=== PATIENT | male | born 1980 | race Caucasian/White ===

== ENCOUNTER 2020-08-24 11:04 | Emergency (ER) | payer BC, SELFPAY ==
[2020-08-24 11:06] VITALS: BP 128/72; PULSE 79; RESP 18; TEMP 36.4; O2SAT 100
[2020-08-24 11:31] LABS: Add Urine Microscopic? YES; Appearance Urine Clear (Clear); Bacteria Urine Trace /hpf; Bilirubin Urine Negative (Negative); Blood Urine Negative (Negative); Color Urine Yellow (Yellow); Glucose Urine UA Negative (Negative); Ketones Urine Negative (Negative); Leukocyte Esterase Ur Negative LEU/UL (Negative); Mucus Urine Rare /lpf; Nitrate Urine Negative (Negative); Protein Urine 1+ mg/dL (Negative); RBC Urine 0-2 /hpf (0-2); Squamous Epithelial Cell Urine Moderate /hpf (Few); Urobilinogen Urine Negative mg/dL (<2.0)
[2020-08-24 11:38] LABS: Specific Grav Ur 1.031 (1.001-1.035)
[2020-08-24 12:13] LABS: Basophils Absolute Auto 0.1 K/mm3 (0.0-0.1); Basophils Percent Auto 1.1 % (0.2-1.2); Eosinophils Absolute Auto 0.6 K/mm3 (0-0.3); Eosinophils Percent Auto 6.1 % (0-4.4); Hematocrit 40.3 % (42.0-52.0); Hemoglobin 13.8 g/dL (14.0-18.0); Immature Granulocyte Absolute 0.05 K/mm3 (0.00-0.031); Immature Granulocyte Percent A 0.5 % (0-0.5); Lymphocytes Absolute Auto 2.58 K/mm3 (0.9-3.2); Lymphocytes Percent Auto 24.7 % (18.3-44.2); Mean Corpuscular HGB Conc 34.2 g/dl (32-36); Mean Corpuscular Hemoglobin 29.1 pg (26-34); Mean Platelet Volume 9.5 fl (7.4-10.4); Monocytes Absolute Auto 0.9 K/mm3 (0.1-0.6); Monocytes Percent Auto 8.1 % (2.6-8.5); Neutrophils Absolute Auto 6.2 K/mm3 (1.3-6.7); Neutrophils Percent Auto 59.5 % (45.5-73.1); Platelet Count Result 261 k/mm3 (150-375); Red Blood Count 4.74 M/mm3 (4.6-6.20); Red Cell Distribution Width 12.5 % (11.5-14.5); White Blood Count 10.5 K/mm3 (4.5-10.0)
[2020-08-24] MEDS: HYDROcodone/acetaminophen (*CRX) 5-325 MG TABLET 1 TAB PO (12:13)
[2020-08-24] MEDS: SODIUM CHLORIDE 0.9% IV 1,000 ML 999 ML IV CONT ×2 (12:13→13:16)
[2020-08-24] MEDS: KETOROLAC 30 MG/ML VIAL (*BKC) IV PUSH (12:13)
[2020-08-24] MEDS: diazePAM (*CRX) 5 MG TABLET PO (12:16)
[2020-08-24 12:25] LABS: Anion Gap 7 mmol/L (8-16); Blood Urea Nitrogen 27 mg/dL (9-20); Carbon Dioxide 27 mmol/L (22-30); Chloride 105 mmol/L (98-107); Estimated CRCL calculation 115 ml/min; Estimated Glomerular Filt Rate > 60; Glucose 109 mg/dL (75-110); Potassium 3.8 mmol/L (3.4-5.0); Sodium 139 mmol/L (137-145)
[2020-08-24 13:38] VITALS: BP 130/62; PULSE 80; RESP 16; O2SAT 99
--- NOTE | 2020-08-24 13:46 | ED.GENADULT ---
HPI - General Adult General Chief complaint: Back Pain/Injury Stated complaint: Low Back Pain/unable to take a deep breath Time Seen by Provider: 08/24/20 11:12 Source: patient, family and RN notes reviewed Mode of arrival: ambulatory Limitations: no limitations History of Present Illness HPI narrative: Patient a 40-year-old male who presents to emergency department for evaluation of left lower lumbar paraspinal back pain that began after working outdoors yesterday patient works in construction for himself patient notes after working he had sat down and noticed that his back began to have spasm and pain noting aching pain worse with activity or movement that does not radiate denies any fever chills nausea vomiting on arrival appears uncomfortable pain has been present for roughly 2 to 3 days patient denies other injury or trauma patient has been taking ibuprofen with minimal improvement Related Data Allergies Allergy/AdvReac Type Severity Reaction Status Date / Time No Known Allergies Allergy Unverified 08/24/20 12:26 Review of Systems Review of Systems: All systems reviewed & are unremarkable except as noted in HPI and below PMFSH Past Medical History Medical History (Updated 08/24/20 @ 13:51 by Dylon Parham PA-C) Diabetes mellitus Family History Family History (Updated 04/16/14 @ 09:46 by DOCTOR UNKNOWN) Grandparent Cerebrovascular accident Diabetes mellitus Father Family history of heart disease in male family member before age 55 Social History Social History Smoking status: Never smoker Second hand tobacco smoke exposure: No Alcohol intake: current Exam Narrative: Exam Narrative: GENERAL: Well-appearing, well-nourished, uncomfortable and in no acute distress. HEAD: Normocephalic, atraumatic. EYES: PERRLA and EOMI. ENT: Nares clear, no rhinorrhea or epistaxis. Mucous membranes moist. CHEST: Clear to auscultation. No respiratory distress. No wheezes rales or rhonchi HEART: Regular rate and rhythm. No murmur heard. Normal peripheral pulses. ABDOMEN: Soft, nontender, nondistended EXTREMITIES: Normal range of motion. No edema. Tenderness of the left lower lumbar paraspinal musculature with spasming no midline or right-sided tenderness SKIN: Warm, dry, no rash. NEURO: No focal deficits. Alert and oriented x3. Cranial nerves II through XII grossly intact PSYCH: Normal mood and affect. Course Course Emergency Course: Patient in the room no distress aware of case findings treatment plan and diagnosis agreeing to follow-up as instructed was hydrated had improvement with medications advised to follow with primary care and agrees to and will return if symptoms worsen or concerns ABCs and vital signs intact and stable Vital Signs Vital signs: Vital Signs Temperature 97.5 F L 08/24/20 11:06 Pulse Rate 79 08/24/20 11:06 Respiratory Rate 18 08/24/20 11:06 Blood Pressure 128/72 08/24/20 11:06 Pulse Oximetry 100 08/24/20 11:06 Temperature 97.5 F L 08/24/20 11:06 Pulse Rate 80 08/24/20 13:38 Respiratory Rate 16 08/24/20 13:38 Blood Pressure 130/62 08/24/20 13:38 Pulse Oximetry 99 08/24/20 13:38 Medical Decision Making MDM Narrative Medical decision making narrative: Patients pain is positional in nature and localized to back without signs of cord compression or cauda equina based on neurological exam, skeletal exam and history. No fever or other significant factors to suggest osteomyelitis or spinal epidural abscess. No symptoms or signs to suggest pain is referred from abdominal or / cardiopulmonary sources. No pulsatile masses noted on exam. Patient ambulates with steady gait and is stable for outpatient management given case findings. Vital Signs Vital Signs: Vital Signs Temperature 97.5 F L 08/24/20 11:06 Pulse Rate 79 08/24/20 11:06 Respiratory Rate 18 08/24/20 11:06 Blood Pressure 1
[2020-08-24 14:29] VITALS: BP 128/72; PULSE 80; RESP 18; O2SAT 99
== END 2020-08-24 14:31 | disposition home or self-care (01) ==
PROVIDERS: Emergency Medicine Emergency Medical Services; Emergency Provider Emergency Medicine; PCP Family Medicine
DX: M54.5 Low back pain (principal); E11.9 Type 2 diabetes mellitus without complications
CPT/HCPCS: 36415; 80048; 81001; 85025; 96361; 96374; 99284; A9270; J1885; J7030

== ENCOUNTER 2021-01-01 15:24 | Emergency (ER) | payer BC, SELFPAY ==
--- NOTE | ~2021-01-01 | CT_ITS ---
EXAMINATION: CT abdomen pelvis w con DATE: 01/01/2021 16:48 INDICATION: Abdominal pain. Blood in stool. TECHNIQUE: Computed tomography (CT) of the abdomen and pelvis was performed with 100 mL Omnipaque 350 intravenous contrast. Automated exposure control and iterative reconstruction technique were employe d. The dose-length product was 1146.52 mGy-cm. COMPARISON: None. FINDINGS: The visualized portions of the lung bases and posterior mild atelectasis. No pleural effusi on. The heart size is normal. No pericardial effusion. The liver, gallbladder, spleen, pancreas, adre nal glands, and kidneys are normal. There are no dilated loops of bowel. The appendix is normal. Ther e are no pathologically enlarged lymph nodes. There is no free intraperitoneal fluid. There is promin ent fat in the inguinal canals that may be hernias. There is mild lumbar spondylosis. IMPRESSION: 1. Prominent fat in the inguinal canals that may be hernias. Reviewed, dictated and finalized at location A.
[2021-01-01 15:36] VITALS: BP 133/79; PULSE 89; RESP 20; TEMP 36.5; O2SAT 98
--- NOTE | 2021-01-01 15:38 | ED.ABDPAIN ---
HPI - Abdominal Pain General Chief Complaint: Abdominal Pain Stated Complaint: stomach pain, blood in stool Time Seen by Provider: 01/01/21 15:38 Source: patient Mode of arrival: ambulatory Limitations: no limitations History of Present Illness HPI narrative: Patient is 40 years old white male presents to the ED with diffuse upper abdominal pain started 4 days ago, got better after 2 days. Associated with nausea and diarrhea for the same 2 days. Currently patient is asymptomatic. Patient came today because he have some blood in the stool 2 days ago, history of hemorrhoids. Patient denies any anal discomfort or pain patient also denies any fever or chills Related Data Home Medications Medication Instructions Recorded Confirmed No Home Medications 01/01/21 01/01/21 Allergies Allergy/AdvReac Type Severity Reaction Status Date / Time No Known Allergies Allergy Unverified 01/01/21 15:35 Review of Systems Review of Systems: CONSTITUTIONAL: Denies fever, chills, or sweats. EYES: Denies visual changes, redness, or discharge. ENT: Denies rhinorrhea, congestion, sore throat, or otalgia. CARDIOVASCULAR: Denies chest pain, palpitations, or edema. RESPIRATORY: Denies cough or dyspnea. GASTROINTESTINAL: Denies abdominal pain, nausea, vomiting, or diarrhea. GENITOURINARY: Denies dysuria or hematuria. SKIN: Denies rash or itching. MUSCULOSKELETAL: Denies back pain, joint pain, or myalgia. NEUROLOGIC: Denies headache, numbness, or weakness. PSYCHIATRIC: Denies anxiety or depression. PMFSH Past Medical History Medical History Diabetes mellitus Family History Family History Grandparent Cerebrovascular accident Diabetes mellitus Father Family history of heart disease in male family member before age 55 Social History Social History Smoking status: Never smoker Second hand tobacco smoke exposure: No Alcohol intake: current Exam Narrative: General appearance: Well-developed, well-nourished Skin: Normal color Head: Normocephalic, nontraumatic Eyes: Clear conjunctiva ENT: Oropharynx normal, ears normal, nose normal Neck: Supple, nontender Chest and respiratory: Airway patent, no respiratory distress, no accessory muscle use Heart: Regular rate/rhythm Abdomen: Soft, nontender, no organomegaly, quiet bowel sounds, rectal exam showed no blood, guaiac negative, no hemorrhoids, no pain or tenderness Vascular: Normal peripheral pulses, normal capillary refill. 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 Labs, IV fluid ordered. Rectal exam showed no blood, guaiac negative, patient was advised to follow-up with snow groomer if there is any blood in the stool again. Differential Diagnosis Differential diagnosis: Likely abdominal pain Imaging Data Radiologist's impression: Impressions Abdomen/Pelvis CT 01/01/21 16:49 IMPRESSION: 1. Prominent fat in the inguinal canals that may be hernias. Critical Care Time Critical Care Time Critical Care Time: Yes Total Critical Care Time: 30 Discharge Plan Discharge Clinical Impression: Abdominal pain Qualifiers: Abdominal location: upper abdomen, unspecified Qualified Code(s): R10.10 - Upper abdominal pain, unspecified Diarrhea Qualifiers: Diarrhea type: presumed in
[2021-01-01] MEDS: SODIUM CHLORIDE 0.9% IV 1,000 ML 999 ML IV CONT (15:55)
[2021-01-01 16:02] LABS: Basophils Absolute Auto 0.1 K/mm3 (0.0-0.1); Eosinophils Absolute Auto 0.4 K/mm3 (0-0.3); Eosinophils Percent Auto 3.3 % (0-4.4); Hemoglobin 15.9 g/dL (14.0-18.0); Immature Granulocyte Absolute 0.04 K/mm3 (0.00-0.031); Immature Granulocyte Percent A 0.4 % (0-0.5); Lymphocytes Absolute Auto 2.84 K/mm3 (0.9-3.2); Lymphocytes Percent Auto 25.7 % (18.3-44.2); Mean Corpuscular HGB Conc 33.8 g/dl (32-36); Mean Corpuscular Hemoglobin 29.7 pg (26-34); Mean Corpuscular Volume 87.7 fl (80-100); Mean Platelet Volume 9.4 fl (7.4-10.4); Monocytes Absolute Auto 0.9 K/mm3 (0.1-0.6); Monocytes Percent Auto 7.7 % (2.6-8.5); Neutrophils Absolute Auto 6.8 K/mm3 (1.3-6.7); Neutrophils Percent Auto 61.9 % (45.5-73.1); Platelet Count Result 276 k/mm3 (150-375); Red Blood Count 5.36 M/mm3 (4.6-6.20); Red Cell Distribution Width 12.1 % (11.5-14.5); White Blood Count 11.1 K/mm3 (4.5-10.0)
[2021-01-01 16:17] LABS: Add Urine Microscopic? NO; Appearance Urine Clear (Clear); Bilirubin Urine Negative (Negative); Blood Urine Negative (Negative); Color Urine Yellow (Yellow); Glucose Urine UA Negative (Negative); Ketones Urine Negative (Negative); Leukocyte Esterase Ur Negative LEU/UL (Negative); Nitrate Urine Negative (Negative); Protein Urine Negative (Negative); Specific Grav Ur 1.026 (1.001-1.035); Urobilinogen Urine Negative mg/dL (<2.0)
[2021-01-01 16:37] LABS: Alanine Aminotransferase 80 U/L (4-50); Albumin Level 4.6 g/dL (3.5-5.1); Alkaline Phosphatase 83 U/L (38-126); Anion Gap 8 mmol/L (8-16); Aspartate Amino Transferase 47 U/L (17-59); Bilirubin,Total 0.5 mg/dL (0.2-1.3); Blood Urea Nitrogen 20 mg/dL (9-20); Calcium 9.1 mg/dL (8.4-10.2); Carbon Dioxide 26 mmol/L (22-30); Chloride 106 mmol/L (98-107); Estimated CRCL calculation 118 ml/min; Estimated Glomerular Filt Rate > 60; Glucose 103 mg/dL (65-110); Lipase 138 U/L (23-300); Sodium 140 mmol/L (137-145)
== END 2021-01-01 17:52 | disposition home or self-care (01) ==
PROVIDERS: Emergency Provider Emergency Medicine; PCP Family Medicine
DX: R10.10 Upper abdominal pain, unspecified (principal); R19.7 Diarrhea, unspecified; R93.5 Abnormal findings on diagnostic imaging of other abdominal regions, including retroperitoneum
CPT/HCPCS: 36415; 74177; 80053; 81003; 83690; 85025; 96360; 96361; 99284; J7030; Q9967

== ENCOUNTER 2022-06-20 12:48 | Emergency (ER) | payer SELFPAY ==
--- NOTE | ~2022-06-20 | XR_ITS ---
EXAMINATION: XR ankle RT min 3V DATE: 06/20/2022 13:07 INDICATION: Right ankle pain and swelling. TECHNIQUE: 4 views of right ankle were obtained. COMPARISON: None. FINDINGS: Bone alignment is normal. No fracture. There is mild osteoarthritis of talonavicular joint. There are enthesophytes at the posterior and plantar aspects of calcaneal tuberosity. IMPRESSION: 1. Mild osteoarthritis of talonavicular joint. Reviewed, dictated and finalized at location A.
--- NOTE | ~2022-06-20 | US_ITS ---
EXAMINATION: US venous doppler LE RT DATE: 06/20/2022 14:58 INDICATION: R ankle,calf pain, swelling, no injury . TECHNIQUE: Grayscale images without and with compression and Doppler images of the right lower extrem ity veins were obtained. COMPARISON: None FINDINGS: The right common femoral vein, profunda (deep) femoral vein, femoral vein, popliteal vein, peroneal v ein, posterior tibial veins, gastrocnemius vein, and greater saphenous vein are patent. IMPRESSION: 1. Patent right lower extremity veins. No evidence of deep venous thrombosis. Reviewed, dictated and finalized at location K.
[2022-06-20 12:51] VITALS: BP 122/88; PULSE 82; RESP 18; TEMP 36.8; O2SAT 100
[2022-06-20] MEDS: NAPROXEN 250 MG TABLET 500 MG PO (14:35)
--- NOTE | 2022-06-20 15:07 | ED.LOWEXIN ---
HPI - Extremity Injury (Lower) General Chief Complaint: Extremity Injury, Lower Stated Complaint: R Ankle pain Time Seen by Provider: 06/20/22 13:46 Source: patient Mode of arrival: ambulatory Limitations: no limitations History of Present Illness HPI Narrative: Patient is a 41 y/o male who presents to the ED with c/o R ankle pain. Patient reports having pain in his R ankle since yesterday afternoon. Began while at work. He denied any known injury, fall, twisting. He states the pain has progressively worsened since then to the point he is hardly able to bear weight on his R foot now. He has noticed slight swelling to his R ankle and lower calf, but denies redness or warmth, tingling, numbness. Denies fever, chills. Denies wounds. Denies Hx gout. Patient takes lisinopril/HCTZ for hypertension. Denies history of diabetes. Denies EtOH use, diet high in red meat. Related Data Allergies Allergy/AdvReac Type Severity Reaction Status Date / Time No Known Allergies Allergy Verified 06/20/22 12:49 Review of Systems Review of Systems: CONSTITUTIONAL: Denies fever, chills, or sweats. SKIN: See HPI. MUSCULOSKELETAL: See HPI. NEUROLOGIC: Denies tingling, numbness, or weakness. All systems reviewed & are unremarkable except as noted in HPI and below PMFSH Past Medical History Medical History HTN (hypertension) Surgical History Surgical History No pertinent past surgical history Family History Family History Grandparent Cerebrovascular accident Diabetes mellitus Father Family history of heart disease in male family member before age 55 Social History Social History (Updated 06/20/22 @ 15:44 by Monica Chandler PA-C) Smoking status: Never smoker Second hand tobacco smoke exposure: No Alcohol intake: former Exam Narrative: GENERAL: Well appearing, obese, non-toxic, in no acute distress. HEAD: Normocephalic, atraumatic. NECK: Supple. No adenopathy, no masses. RESPIRATORY: Airway patent, respirations nonlabored. Clear to auscultation bilaterally, no rales, rhonchi, wheezing. CARDIOVASCULAR: Regular rate and rhythm without murmurs, rubs, or gallops. Pedal pulses 2+ and equal bilaterally. MUSCULOSKELETAL: Moves all extremities. Strength/ROM intact without gross deformities. Mild limited range of motion of right ankle due to pain. Moderate tenderness to palpation over anterior and medial left ankle with even very light touch. SKIN: Warm, dry, normal color. No rashes. Mild swelling right ankle diffusely throughout joint. NEURO: A&O X3. Speech clear. Cranial nerves II-XII grossly intact. No ataxic movements. PSYCHIATRIC: Appropriate mood and affect. Normal interaction. Course Vital Signs Vital signs: Vital Signs Temperature 98.2 F 06/20/22 12:51 Pulse Rate 82 06/20/22 12:51 Respiratory Rate 18 06/20/22 12:51 Blood Pressure 122/88 06/20/22 12:51 Pulse Oximetry 100 06/20/22 12:51 Oxygen Delivery Room Air 06/20/22 12:51 Temperature 98.2 F 06/20/22 12:51 Pulse Rate 82 06/20/22 12:51 Respiratory Rate 18 06/20/22 12:51 Blood Pressure 122/88 06/20/22 12:51 Pulse Oximetry 100 06/20/22 12:51 Oxygen Delivery Room Air 06/20/22 12:51 MDM - Extremity Injury (Lower) MDM Narrative Medical decision making narrative: Patient presented to ED with 2-day history of right ankle pain pain, mild swelling. No known injury. Exam with significant tenderness to palpation with even very light touch to right ankle. No significant redness or warmth, no wounds, low suspicion for septic joint or cellulitis. Vitals have been stable, afebrile. X-ray right ankle negative, showing mild OA. Venous Doppler ultrasound obtained and negative for DVT. Discussed that symptoms may be related to gout versus ankle sprain.
[2022-06-20 15:35] VITALS: BP 140/86; PULSE 85; RESP 16; O2SAT 99
== END 2022-06-20 15:48 | disposition home or self-care (01) ==
PROVIDERS: Emergency Provider Physician Assistant; PCP Family Medicine
DX: M25.571 Pain in right ankle and joints of right foot (principal); I10 Essential (primary) hypertension; M19.071 Primary osteoarthritis, right ankle and foot
CPT/HCPCS: 73610; 93971; 99284; A9270

== ENCOUNTER 2022-07-04 15:07 | Emergency (ER) | payer SELFPAY ==
--- NOTE | ~2022-07-04 | XR_ITS ---
EXAMINATION: XR chest 2V 07/04/2022 17:39 INDICATION: Upper back and chest pain PROCEDURE: 2 view chest COMPARISON: 02/18/2014 FINDINGS: The lungs are clear. The cardiomediastinal silhouette is within normal limits. There are no pleural effusions. There is no pneumothorax suspected. IMPRESSION: 1: NO ACUTE CARDIOPULMONARY DISEASE. Reviewed, dictated and finalized at location A.
--- NOTE | ~2022-07-04 | CT_ITS ---
EXAMINATION: CT cervical spine wo con DATE: 07/04/2022 17:34 INDICATION: Neck injury TECHNIQUE: Computed tomography (CT) of the cervical spine was performed without intravenous contrast. The dose-length product was 517 mGy-cm. Automated exposure control and iterative reconstruction tech nique were employed. COMPARISON: None FINDINGS: Craniovertebral junction is normal. Odontoid process within normal limits. No evidence for perched facet. Spinous processes are intact. There is straightening of cervical lordosis which may be due to muscle spasm or patient positioning. Vertebral body heights are maintained. No significant di sc narrowing. No acute fracture or traumatic malalignment. Lung apices are normal. Uncinate joints ar e intact. Lateral masses normally aligned. No significant paraspinal soft tissue abnormality. IMPRESSION: 1. No acute abnormality of the cervical spine. Reviewed, dictated and finalized at location A.
[2022-07-04 15:25] VITALS: BP 121/62; PULSE 107; RESP 18; TEMP 36.9; O2SAT 98
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
[2022-07-04] MEDS: IBUPROFEN 600 MG TABLET PO (17:39)
[2022-07-04] MEDS: ACETAMINOPHEN 325 MG TABLET 650 MG PO (17:39)
== END 2022-07-04 18:20 | disposition home or self-care (01) ==
LOC: ANHED 18:18
PROVIDERS: Emergency Provider Physician Assistant; PCP Family Medicine
DX: S29.9XXA Unspecified injury of thorax, initial encounter (principal); I10 Essential (primary) hypertension; V49.40XA Driver injured in collision with unspecified motor vehicles in traffic accident, initial encounter
CPT/HCPCS: 71046; 72125; 99284; A9270

== ENCOUNTER 2022-07-19 11:48 | Emergency (ER) | payer SELFPAY ==
[2022-07-19] VITALS (19 sets, daily range): BP systolic 114–132; BP diastolic 65–80; PULSE 85–113; RESP 17–32; TEMP 37.3; O2SAT 92–97
--- NOTE | ~2022-07-19 | XR_ITS ---
EXAMINATION: XR chest 1V portable DATE: 07/19/2022 12:35 INDICATION: Cough and shortness of breath. TECHNIQUE: A single frontal view of the chest was obtained. COMPARISON: Chest 2 views 07/04/2022, CT abdomen and pelvis 01/01/2021 FINDINGS: The chest demonstrates clear lungs without pneumonia, pleural effusion, or pneumothorax. Th e heart size is normal. IMPRESSION: 1. No acute cardiopulmonary disease. Reviewed, dictated and finalized at location A.
--- NOTE | 2022-07-19 12:21 | ED.FEVER ---
HPI - Fever General Chief Complaint: Fever Stated Complaint: fever Time Seen by Provider: 07/19/22 11:59 History of Present Illness HPI Narrative: Patient is a 41-year-old male with a history of hypertension presenting with fevers. Patient states that for the last 5 days he has been experiencing diffuse body aches, cough, shortness of breath, vomiting, diarrhea. States that he has been running an intermittent fever. States that it was up to 102 last night. States that he took some ibuprofen this morning. States that he has some chest pain only when he coughs. Reports mild dysuria. No headaches, numbness or weakness, sore throat, abdominal pain, flank pain, rashes, leg swelling. Related Data Allergies Allergy/AdvReac Type Severity Reaction Status Date / Time No Known Allergies Allergy Verified 07/19/22 11:58 Review of Systems Review of Systems: All systems reviewed & are unremarkable except as noted in HPI and below PMFSH Past Medical History Medical History HTN (hypertension) Surgical History Surgical History No pertinent past surgical history Family History Family History Grandparent Cerebrovascular accident Diabetes mellitus Father Family history of heart disease in male family member before age 55 Social History Social History Smoking status: Never smoker Second hand tobacco smoke exposure: No Alcohol intake: former Exam Narrative: GENERAL: Nontoxic, in no acute distress, does appear fatigued HEAD: Normocephalic, atraumatic. EYES: PERRLA and EOMI. ENT: Nares clear, no rhinorrhea or epistaxis. Mucous membranes moist. NECK: Supple. CHEST: Clear to auscultation. No respiratory distress. HEART: Regular rate and rhythm. No murmur heard. Normal peripheral pulses. ABDOMEN: Soft, nontender, nondistended EXTREMITIES: Normal range of motion. No edema. SKIN: Warm, dry, no rash. Several cat scratches left lower extremity without surrounding erythema or warmth, not suspicious for infected wounds NEURO: No focal deficits. Alert and oriented x3. PSYCH: Normal mood and affect. Course Vital Signs Vital signs: Vital Signs Temperature 99.1 F 07/19/22 11:55 Pulse Rate 110 H 07/19/22 11:55 Respiratory Rate 22 H 07/19/22 11:55 Blood Pressure 123/76 07/19/22 11:55 Pulse Oximetry 95 07/19/22 11:55 Oxygen Delivery Room Air 07/19/22 11:55 Temperature 99.1 F 07/19/22 11:55 Pulse Rate 95 07/19/22 15:52 Respiratory Rate 17 07/19/22 15:52 Blood Pressure 114/71 07/19/22 15:52 Pulse Oximetry 97 07/19/22 15:52 Oxygen Delivery Room Air 07/19/22 11:55 MDM - Fever MDM Narrative Medical decision making narrative: Patient is a 41-year-old male presenting with fevers, body aches, vomiting, diarrhea for several days. On arrival, patient is tachycardic and tachypneic. Normotensive and saturating well on room air. Blood work with mild hyponatremia. Lactic acid is normal. No leukocytosis. Chest x-ray shows no focal consolidations, effusions, pneumothorax. Patient is negative for COVID and influenza. Patient received IV Zofran, Toradol, fluids and states that he feels significantly improved. Discussed the reassuring work-up and advised PCP follow-up. We will send in a prescription for some Zofran and advised ibuprofen and Tylenol for body aches and fevers. Appropriate return precautions given. Patient voiced understanding and is agreeable with plan. Discharged in stable condition. Differential Diagnosis Differential diagnosis: Likely community acquired pneumonia, viral infection, sepsis, influenza and other Medical Records Attestation: I reviewed the patient's medical records. Lab Data Attestation: I reviewed the patient's lab results. 05
[2022-07-19] MEDS: KETOROLAC 15 MG/ML VIAL (*BKC) IV PUSH (12:50)
[2022-07-19] MEDS: ONDANSETRON INJ 4 MG/2 ML VIAL IV PUSH (12:50)
[2022-07-19] MEDS: SODIUM CHLORIDE 0.9% IV 1,000 ML 999 ML IV CONT ×2 (12:50→13:17)
[2022-07-19 12:54] LABS: Basophils Absolute Auto 0.1 K/mm3 (0.0-0.1); Basophils Percent Auto 0.8 % (0.2-1.2); Hematocrit 43.6 % (42.0-52.0); Hemoglobin 14.9 g/dL (14.0-18.0); Immature Granulocyte Absolute 0.03 K/mm3 (0.00-0.031); Immature Granulocyte Percent A 0.4 % (0-0.5); Lymphocytes Absolute Auto 0.96 K/mm3 (0.9-3.2); Lymphocytes Percent Auto 12.7 % (18.3-44.2); Mean Corpuscular HGB Conc 34.2 g/dl (32-36); Mean Corpuscular Hemoglobin 29.2 pg (26-34); Mean Corpuscular Volume 85.3 fl (80-100); Mean Platelet Volume 10.1 fl (7.4-10.4); Monocytes Absolute Auto 0.6 K/mm3 (0.1-0.6); Monocytes Percent Auto 7.3 % (2.6-8.5); Neutrophils Percent Auto 78.8 % (45.5-73.1); Platelet Count Result 150 k/mm3 (150-375); Red Blood Count 5.11 M/mm3 (4.6-6.20); Red Cell Distribution Width 12.8 % (11.5-14.5); White Blood Count 7.6 K/mm3 (4.5-10.0)
[2022-07-19 13:04] LABS: Appearance Urine Clear (Clear); Bacteria Urine None Seen /hpf; Bilirubin Urine Negative (Negative); Blood Urine Negative (Negative); Color Urine Yellow (Yellow); Glucose Urine UA Negative (Negative); Ketones Urine Trace mg/dL (Negative); Leukocyte Esterase Ur Negative LEU/UL (Negative); Nitrate Urine Negative (Negative); Non Pathogenic Casts 0-2; Protein Urine 1+ mg/dL (Negative); RBC Urine 0-2 /hpf (0-2); Specific Grav Ur 1.018 (1.001-1.035); Squamous Epithelial Cell Urine None seen /hpf (Few); WBC Urine 0-5 /hpf; pH Urine 6.5 (5.0-9.0)
[2022-07-19 13:05] LABS: Add Urine Microscopic? YES
[2022-07-19 13:25] LABS: Alanine Aminotransferase 109 U/L (6-50); Albumin Level 4.2 g/dL (3.5-5.1); Alkaline Phosphatase 93 U/L (38-126); Anion Gap 2 mmol/L (8-16); Aspartate Amino Transferase 88 U/L (17-59); Bilirubin,Total 1.2 mg/dL (0.2-1.3); Blood Urea Nitrogen 17 mg/dL (9-20); Calcium 8.4 mg/dL (8.4-10.2); Carbon Dioxide 28 mmol/L (22-30); Chloride 101 mmol/L (98-107); Estimated CRCL calculation 117 ml/min; Estimated Glomerular Filt Rate > 60; Glucose 115 mg/dL (65-110); Lipase 64 U/L (23-300); Magnesium 2.1 mg/dL (1.6-2.3); Potassium 4.1 mmol/L (3.4-5.0); Sodium 131 mmol/L (137-145)
[2022-07-19 13:31] LABS: Influenza A QL RT-PCR Negative (Negative); Influenza B QL RT-PCR Negative (Negative); RSV RNA, RT-PCR Negative (Negative); SARS-CoV-2 RNA PCR Negative (Negative)
[2022-07-19 14:03] LABS: Lactic Acid Reflex 0.6 mmol/L (0.7-2.0)
== END 2022-07-19 15:53 | disposition home or self-care (01) ==
PROVIDERS: Emergency Provider Emergency Medicine; PCP Family Medicine
DX: B34.9 Viral infection, unspecified (principal); R11.2 Nausea with vomiting, unspecified; Z20.822 Contact with and (suspected) exposure to COVID-19; I10 Essential (primary) hypertension
CPT/HCPCS: 36415; 71045; 80053; 81001; 83605; 83690; 83735; 85025; 87040; 87637; 96361; 96374; 96375; 99284; J1885; J2405; J7030